=== PATIENT | male | born 1985 | race Hispanic/Latino ===

== ENCOUNTER → 2024-04-21 | Outpatient (REF) | payer OTHER ==
[~2024-04-21] MED LIST: IOPAMIDOL 370 MG/ML 100 ML INFUS..BTL INJ ONE
== END ==
LOC: CT 13:34
PROVIDERS: ATTEND Family Medicine
DX: S91.332A Puncture wound without foreign body, left foot, initial encounter (principal)
CPT/HCPCS: 73701; Q9967

== ENCOUNTER → 2024-05-09 | Outpatient (REF) | payer OTHER | LOC: CT 16:12 | PROVIDERS: ATTEND Family Medicine | DX: S91.332A Puncture wound without foreign body, left foot, initial encounter (principal) | CPT/HCPCS: 73701; Q9967 ==